=== PATIENT | female | born 1960 | race Caucasian/White ===

== ENCOUNTER 2023-06-27 08:07 | Observation (INO) ==
--- NOTE | 2023-05-03 15:50 | Anesthesiology Consultation ---
Date of Service May 03, 2023 Assessment & Plan (1) Encounter for pre-operative examination: Chart Review Chart Review: Acceptable Risk for Surgery (pending preop Covid testing results ) and Patient NOT seen in Pre Admission Testing - Awaiting preop Rake Covid test test (being done 05/04/23 or 05/05/23) - Patient is NOT an ideal OPJ candidate (currently 23 hour observation) -Infectious Disease screening: Per PAT nursing assessment on 05/03/23. Patient with congestion/runny nose x 3-4 days (symptoms resolving). No known infectious disease contacts in past 10 days. No recent travel outside the country. Due to proximity of symptoms in relation to surgery date- will need Covid test prior to surgery. Patient will get preop Covid test 05/04/23 or 05/05/23. Will await results (Patient educated symtpoms will need to be fully resolved by DOS) Left TKA 01/10/23= Done under SAB at L3-4 with two attempts History Surgery Operation Date: 05/09/23 10:55 Proposed Procedures p Right Total Knee Arthroplasty - Jackson Alejandro MD Height/Weight Height: 5 ft 4 in Weight: 122.47 kg Allergies Allergy/AdvReac Type Severity Reaction Status Date / Time No Known Allergies Allergy Verified 05/03/23 15:05 Medications Home Medications Medication Instructions Recorded Confirmed Last Taken atorvastatin 20 mg tablet (Lipitor) 20 mg PO QAM 12/19/22 05/03/23 01/10/23 05:00 fluoxetine 20 mg capsule 20 mg PO QAM 12/19/22 05/03/23 01/10/23 05:00 fluoxetine 40 mg capsule (Prozac) 40 mg PO QAM 12/19/22 05/03/23 01/10/23 05:00 lisinopril 10 mg tablet 10 mg PO QAM 12/19/22 05/03/23 01/09/23 06:30 multivitamin 1 tab PO QAM 12/19/22 05/03/23 01/09/23 06:30 torsemide 10 mg tablet 10 mg PO QAM 12/19/22 05/03/23 01/09/23 06:30 ketorolac 10 mg tablet 10 mg PO Q6 pain 5 days #20 tabs 01/08/23 05/03/23 Unknown oxycodone 5 mg tablet 5 - 10 mg (1 - 2 x 5 mg) PO Q6 PRN 01/08/23 05/03/23 Unknown pain #40 tabs amino acids 3 cap PO BID 05/03/23 05/03/23 Unknown ondansetron 4 mg disintegrating 4 mg PO Q8H PRN nausea 05/03/23 05/03/23 Unknown tablet Past Medical History Medical History Degenerative arthritis of knee, bilateral History of anxiety Hyperlipidemia Hypertension Morbid obesity Past Surgical History Surgical History History of dilatation and curettage Hx laparoscopic cholecystectomy Hx of colonoscopy Hx of tonsillectomy Hx of umbilical hernia repair Status post total left knee replacement using cement Social History Smoking Status: Never smoker Do You Dip or Chew Tobacco: No Hx Alcohol Use: No Hx Substance Use: No substance use type: does not use Lab Results Anesthesia Preop Results Results Anesthesia Widget: WBC 6.32 K/ul (4.8-10.8) 04/21/23 Hgb 12.8 g/dl (12.0-16.0) 04/21/23 Hct 40.7 % (37.0-47.0) 04/21/23 Plt 262 K/uL (130-400) 04/21/23 Na 142 mmol/L (136-145) 04/21/23 K 4.2 mmol/L (3.5-5.1) 04/21/23 Cl 105 mmol/L (98-107) 04/21/23 CO2 31 mmol/L (21-32) 04/21/23 BUN 25 mg/dl (6-23) H 04/21/23 Creat 0.84 mg/dl (0.6-1.2) 04/21/23 Glucose Level 83 mg/dl (70-99(Fasting)) 04/21/23 PT 11.0 Seconds (9.0-12.0) 04/21/23 PTT 28 Seconds (21-31) 04/21/23 INR 1.0 (0.9-1.1) 04/21/23 Blood Type O Positive 04/21/23 Antibody Screen NEGATIVE 04/21/23 Testing Electrocardiogram Date: 12/21/22 NSR at 69bpm. "Normal ECG" Chest X-Ray Date: 12/21/22 FINDINGS: The lungs are clear. Cardiac silhouette is normal in size. No pleural effusions. No pneumothorax. Prior cholecystectomy. There is a mildly tortuous thoracic aorta. Degenerative changes within the shoulders. IMPRESSION: No acute process.
--- NOTE | 2023-05-06 12:10 | History & Physical Report ---
Date of Service May 06, 2023 Assessment & Plan (1) Right knee DJD: 62-year-old female with underlying morbid obesity 3 and half months out from left knee replacement with advanced right knee tricompartment DJD. She failed conservative measures. She like to proceed with a right knee replacement. Plan: Orgran take her to the operating room and do a right knee replacement. The risks Mente this procedure were explained the patient clued but not limited to DVT PE infection neurological and vascular bleeding palm pain limb range of motion sepsis fairly with symptoms excetra. The patient understands and desires to proceed. Informed consent is obtained. Will likely use a cemented stem due to her deformity and large size. She was discharged home with and did outpatient therapy at [facility] last time and we will plan on a similar process. (2) Status post total left knee replacement using cement: History of Present Illness Chief Complaint: . Persistent right knee pain and discomfort. Primary Care Provider: Pankaj Light MD . Patient is a 62-year-old female from [facility] who is now about 3 and half months out from a left knee replacement. She is doing quite well from that side but continues to be limited by right knee pain and discomfort. She been through extensive conservative treatment in the past was become less successful over time. She directed to have her right knee fixed. She does live by herself and having difficulty managing this due to her pain and limited mobility. Allergies Allergy/AdvReac Type Severity Reaction Status Date / Time No Known Allergies Allergy Verified 05/03/23 15:05 Home Medications Medication Instructions Recorded Confirmed Type atorvastatin 20 mg tablet (Lipitor) 20 mg PO QAM 12/19/22 05/03/23 History fluoxetine 20 mg capsule 20 mg PO QAM 12/19/22 05/03/23 History fluoxetine 40 mg capsule (Prozac) 40 mg PO QAM 12/19/22 05/03/23 History lisinopril 10 mg tablet 10 mg PO QAM 12/19/22 05/03/23 History multivitamin 1 tab PO QAM 12/19/22 05/03/23 History torsemide 10 mg tablet 10 mg PO QAM 12/19/22 05/03/23 History ketorolac 10 mg tablet 10 mg PO Q6 pain 5 days #20 tabs 01/08/23 05/03/23 Rx oxycodone 5 mg tablet 5 - 10 mg (1 - 2 x 5 mg) PO Q6 PRN 01/08/23 05/03/23 Rx pain #40 tabs amino acids 3 cap PO BID 05/03/23 05/03/23 History ondansetron 4 mg disintegrating 4 mg PO Q8H PRN nausea 05/03/23 05/03/23 History tablet Past Med/Surg History Medical History (Updated 05/06/23 @ 12:08 by Jackson Alejandro MD) Right knee DJD Morbid obesity History of anxiety Hyperlipidemia Hypertension Degenerative arthritis of knee, bilateral Surgical History Status post total left knee replacement using cement History of dilatation and curettage Hx of umbilical hernia repair Hx laparoscopic cholecystectomy Hx of colonoscopy Hx of tonsillectomy Social History Smoking Status: Never smoker Second Hand Exposure: Yes (hx as child until age 10); Do You Dip or Chew Tobacco: No; Hx Alcohol Use: No Hx Substance Use: No Preferred Language: Scottish Communication Ability: Effective Electrical Prospecting Observer Required: No Beliefs That Will Affect Care: None Current Living Situation: Alone Feels Safe at Home: Yes Assistive Devices: Glasses Review of Systems All systems reviewed & are unremarkable except as noted in HPI & below. Physical Exam . Physical examination reveals a healthy a pleasant obese female. Examination of the knee reveals patient ambulates with use of a cane. Examination of the right knee reveals large soft tissue envelope. She got slight varus alignment to her knee. Tender with medial joint line. Knee is pretty stiff with range of motion about 10-1 05. No instability but examination left knee reveals well-healed incision. There is anatomic alignment to her knee. Large soft tissue envelope. Range of motion 0-1 10-1 15. No instability. Constitutional WD/WN, vitals as above Neck trachea midline, no thyromegaly Respiratory normal respiratory effort, lungs clear to auscultation Cardiovascular RRR, no murmur, no edema Gastrointestinal (Abdomen) normal bowel sounds, soft, nontender, no hepatosplenomegaly Results & Data Results & Data Laboratory Results . Diagnostic Findings . X-ray of the right knee reviewed. Shows advanced right knee tricompartment DJD. She is got complete loss of her medial joint space both medially and laterally. She is got tibiofemoral subluxation. PG Care Time/CCT Total # of Minutes Spent Total Time Spent with Patient: Total time spent is greater than 50% in coordination of care (as documented) at patient's floor/unit and/or counseling patient: Coding Level of Care Code None Diagnoses Right knee DJD M17.11 Status post total left knee replacement using cement Z96.652
--- NOTE | 2023-06-24 09:12 | History & Physical Report ---
Date of Service June 24, 2023 Assessment & Plan (1) Right knee DJD: 62-year-old female with moderate obesity and hypertension now 6 months out from a left knee replaced with advanced right knee tricompartment DJD. She is failed conservative measures. She like to have her right knee replaced. She was actually scheduled in the past but had to cancel due to some respiratory issues. This has been cleared up and would like to proceed with knee surgery. Plan: Wood to take her to the operating room and do a right knee replacement. The risks Mente this procedure explained the patient include but not limited to DVT, , infection, neurovascular injury, bleeding problems, , failure to relieve her symptoms, need for further surgery in the future. The patient understands and desires to proceed. Informed consent was obtained. She is planning on being discharged to home player. She did outpatient therapy at [facility]. She does live by herself. We use teds, SCDs, aspirin for DVT prophylaxis. Will likely put some vancomycin in the cement due to her significant BMI and increased risk of infection. (2) Status post total left knee replacement using cement: History of Present Illness Chief Complaint: . Persistent right knee pain and discomfort. Primary Care Provider: Pankaj Light MD . The patient is a 62-year-old female from [facility] who presents for surgical treatment of her right knee. She had a long history of knee pain and discomfort. She underwent a left knee replacement just about 6 months ago. She is done quite well from this. She was actually scheduled to have her right knee replaced in the past but came down with a respiratory illness. She is now recovered from this. She now like to proceed with right knee replacement. She has global pain in the knee. She is failed all conservative measures. She lives by herself and still having difficulty getting around due to this right knee. Allergies Allergy/AdvReac Type Severity Reaction Status Date / Time No Known Allergies Allergy Verified 05/03/23 15:05 Home Medications Medication Instructions Recorded Confirmed Type atorvastatin 20 mg tablet (Lipitor) 20 mg PO QAM 12/19/22 05/03/23 History fluoxetine 20 mg capsule 20 mg PO QAM 12/19/22 05/03/23 History fluoxetine 40 mg capsule (Prozac) 40 mg PO QAM 12/19/22 05/03/23 History lisinopril 10 mg tablet 10 mg PO QAM 12/19/22 05/03/23 History multivitamin 1 tab PO QAM 12/19/22 05/03/23 History torsemide 10 mg tablet 10 mg PO QAM 12/19/22 05/03/23 History ketorolac 10 mg tablet 10 mg PO Q6 pain 5 days #20 tabs 01/08/23 05/03/23 Rx oxycodone 5 mg tablet 5 - 10 mg (1 - 2 x 5 mg) PO Q6 PRN 01/08/23 05/03/23 Rx pain #40 tabs amino acids 3 cap PO BID 05/03/23 05/03/23 History ondansetron 4 mg disintegrating 4 mg PO Q8H PRN nausea 05/03/23 05/03/23 History tablet Past Med/Surg History Medical History Right knee DJD Morbid obesity History of anxiety Hyperlipidemia Hypertension Degenerative arthritis of knee, bilateral Surgical History Status post total left knee replacement using cement History of dilatation and curettage Hx of umbilical hernia repair Hx laparoscopic cholecystectomy Hx of colonoscopy Hx of tonsillectomy Social History Smoking Status: Never smoker Second Hand Exposure: Yes (hx as child until age 10); Do You Dip or Chew Tobacco: No; Hx Alcohol Use: No Hx Substance Use: No Preferred Language: Algerian Communication Ability: Effective Warp Dyeing Vat Tender Required: No Beliefs That Will Affect Care: None Current Living Situation: Alone Feels Safe at Home: Yes Assistive Devices: Glasses Review of Systems All systems reviewed & are unremarkable except as noted in HPI & below. Physical Exam . Sickle examination reveals a healthy obese middle-aged female. Examination of the right knee reveals a large soft tissue envelope. She got slight varus alignment to her knee. Her range of motion is about 10 degrees short of full extension to about 105 degrees of flexion. Fairly stiff knee. No instability. No particular pain with hip motion. Examination left knee reveals well-healed incision. Got anatomic alignment to the knee. Good straight leg raise. Range of motion 0 to about 1 10-1 15 limited by soft tissues. No instability. Constitutional WD/WN, vitals as above Neck trachea midline, no thyromegaly Respiratory normal respiratory effort, lungs clear to auscultation Cardiovascular RRR, no murmur, no edema Gastrointestinal (Abdomen) normal bowel sounds, soft, nontender, no hepatosplenomegaly Results & Data Results & Data Laboratory Results . Diagnostic Findings . X-rays of the right knee reviewed. Shows advanced right knee tricompartment DJD. She has complete loss of the joint space in all 3 areas. She got tibiofemoral subluxation. Subchondral sclerosis. The left knee replacement looks to be in good position without signs of problems. PG Care Time/CCT Total # of Minutes Spent Total Time Spent with Patient: Total time spent is greater than 50% in coordination of care (as documented) at patient's floor/unit and/or counseling patient: Coding Level of Care Code None Diagnoses Right knee DJD M17.11 Status post total left knee replacement using cement Z96.652
[~2023-06-27 08:07] MED LIST: BUPIVACAINE 0.25% PF 30 ML VIAL ONE; BUPIVACAINE 0.5 % 5 MG/1 ML PF 10ML VIAL ONE
--- NOTE | 2023-06-27 08:42 | History & Physical Bridge Note ---
Date of Service June 27, 2023 History & Physical Bridge Note I have examined the patient, reviewed the History & Physical and in the interval since the performance of the History & Physical I have noted the following changes of clinical significance: no changes noted
[2023-06-27] MEDS: LR 500ML BOLUS, THEN 15ML/HR IV SCH (08:49)
[2023-06-27] MEDS: LR 60ML/HR IV SCH (08:49)
[2023-06-27] MEDS: METOCLOPRAMIDE HCL 10 MG TABLET PO SCH (08:51)
[2023-06-27] MEDS: CeleBREX 200 MG CAP PO SCH (08:51)
[2023-06-27] MEDS: ACETAMINOPHEN 500 MG TAB PO SCH ×2 (08:51→15:05)
[2023-06-27] MEDS: dexAMETHasone**PF** 10 MG/ML VIAL IV SCH (08:51)
[2023-06-27] MEDS: Scopolamine 1 MG TDSY TD SCH (08:51)
[2023-06-27] MEDS: FAMOTIDINE 20 MG TAB PO SCH (08:51)
[2023-06-27] MEDS ORDERED: MIDAZOLAM HCL 1 MG/ML 2ML VIAL ONE (10:00)
[2023-06-27] MEDS ORDERED: fentaNYL citrate PF 100 MCG/2 ML VIAL ONE (10:00)
[2023-06-27] MEDS: ceFAZolin 3000MG 3,000 MG/72.5 ML BAG IV SCH (11:03)
[2023-06-27] MEDS ORDERED: ePHEDrine sulfate 50 MG/ML AMP IV PRN (11:16)
[2023-06-27] MEDS ORDERED: fentaNYL citrate PF 100 MCG/2 ML VIAL IV PRN (11:16)
[2023-06-27] MEDS ORDERED: ATROPINE SULFATE 0.1 MG/ML 10ML SYR IV PRN (11:16)
[2023-06-27] MEDS ORDERED: ONDANSETRON INJ 2 MG/ML 2 ML VIAL IV PRN ×2 (11:16→14:41)
[2023-06-27] MEDS ORDERED: ONDANSETRON INJ 2 MG/ML 2 ML VIAL ONE (11:32)
[2023-06-27] MEDS: TRANEXAMIC ACID 1,000 MG **IV Intra-op IV SCH (12:12)
[2023-06-27] MEDS: ORTHO JOINT ANESTHETIC ONE (12:30)
[2023-06-27] MEDS: ROPIV 0.5% 246mg, Ketorolac 30mg, EPINEPHrine 0.5mg in NSS INFIL SCH (12:30)
[2023-06-27] MEDS ORDERED: PROPOFOL IV EMULSION 10 MG/ML 100 ML VIAL IV ONE (12:42)
--- NOTE | 2023-06-27 13:05 | Operative Report ---
PG Post Operative Report Pre & Post Diagnosis Operation Date: 06/27/23 10:40 Pre-Op Diagnosis: Right Knee DJD Post-Op Diagnosis: Right Knee DJD I identified the patient and participated in the time-out.: Yes Procedure Operation Date: 06/27/23 10:40 Actual Procedures p Right Total Knee Arthroplasty(Right) - Jackson Alejandro MD Surgeon Jackson Alejandro MD Rigging Up Man Justin Henley PA-C Estimated Blood Loss 50 Findings Consistent with Post-Op Diagnosis Operative findings revealed advanced right knee tricompartment DJD. She had extensive grade 4 [id number] eburnation in all 3 compartments. She had a very stiff knee with a 10 degree flexion contracture and only bend about 100 degrees. She had osteophytes in all 3 compartments. Chronic ACL deficiency. Diffuse osteopenia. Specimens Right knee sent for pathology. Anesthesia Type Spinal MAC Complications none Disposition Accompanied Patient To Recovery: No Indications Patient is a 62-year-old female is had a long history of bilateral knee pain discomfort describes gotten worse over time. She become debilitated by her knee pain. She failed all conservative measures. X-rays revealed severe knee arthritis. She had her left knee replaced about 3 and half months ago and done well from this. She continued to be limited by right knee pain discomfort and stiffness. She elected proceed with right total knee replacement. Description of Procedure Operative implants consist of: 1 Biomet Vanguard size 67.5 right posterior stabilized femoral component. 2. Biomet size 75 tibial tray with a 12.5 mm x 8 mm cemented extension. 3. 10 mm post stabilized polyethylene insert. 4. 31 x 8 all poly patella. The patient was taken the op room, identified, placed on the operating table in the supine position but all contact areas were appropriately padded. IV antibiotics tried by anesthesia team. A spinal anesthetic and adductor canal block had provided holding area. Cook catheter was placed in sterile fashion. Right Tetrick was then placed to the right lower extremities then prepped and draped in usual sterile fashion. The right leg was elevated exsanguinated with use of an Esmarch and tourniquet placed at 300 mmHg. An anterior approach to the right knee was then performed to longitudinal incision centered over the patella. Sharp dissection was carried through subcutaneous tissue down the extensor mechanism. A medial parapatellar arthrotomy incision was made. Some subperiosteal dissection was carried out medially. The fat pad was dissected from Neath patella tendon. Lateral patellofemoral ligament was released. Patella subluxated laterally and the knee was flexed. The osteophytes taken off distal femur. The ACL was absent. The PCL was released and the tibia subluxated anteriorly. The external tibial alignment jig was then placed in the interface the tibia and adjusted 14 mm medially. Proximal tibial cut was made remove about 2 to 3 mm of bone from the medial side. The tibia sized to a size 75. Attention drawn the femur. The distal femur was then with a sharp drill. Intramedullary canal was suction. A right 5 degree valgus cutting guide was placed through the distal femoral cutting block was pinned in place. Distal femoral cut was made take an additional 3 mm of bone off distal femur. The femur was then sized to a size 67.5. The AP cutting block was pinned parallel to the epicondylar axis which was 3 degrees of external rotation. The anterior cut, anterior chamfer, posterior cut, posterior chamfer cuts were made. The box cutting guide was pl aced in just slight lateral and the box cut was made. The knee was flexed. The remnants of the medial and lateral menisci were excised. The osteophyte taken off the posterior aspect the femur. A trial femoral component was placed. The tibial tray was pinned Eliza external rotation and the drill and stem punch used to create defect in proximal tibia for the tibial tray. I then reamed by hand and power up to about a 15 in order to put a longer cemented stem and of 80 mm. Tibial tray was then assembled and placed and fit nicely nicely. The femoral trial component was placed. The knee was then trialed and the 10 mm insert fit most appropriately. Attention drawn the patella. The patella was cleaned of all soft tissue. Patella thickness measured 22 mm in thickness was cut down to 13. Was sized to a size 31 patella. The lug holes were drilled for 31 patella. Lateral osteophytes removed. Patella button was placed. Knee was taken through range of motion patella tracked nicely with no thumbs test. Attention drawn to placing permanent components. Nupathe all trial components were removed. Bone plug was placed in distal femur limit blood loss. Double batch Palacos G cement was mixed. A BiomRapidMinerguard size 67.5 right Po stabilized femoral component, size 75 tibial tray with a 80 mm x 12.5 mm cemented stem was placed followed by a 10 mm insert and a 31 x 8 all poly pa tella. The knee was brought out in full extension till cement hardened.. Once the cement hardened the final cement check was then performed. The pericapsular tissues were injected with total 100 cc of combination of a joint mix. Patient did receive 1 g tranexamic acid. The tourniquet was let down for final tourniquet time of 67 minutes. Hemostasis assured use electrocautery. Extensor mechanism closed with a combination 1 PDS suture #1 Vicryl suture in [id number] fashion. Extensor Meclomen checked found to be intact with subcutaneous tissues then closed with 2 Dexon suture in a buried interrupted fashion skin was closed skin dejan. Leg was then cleaned and dried and sterile dressed with Xeroform, 4 fours, sterile cast padding, Trevin bandage were applied. Patient then transferred to the recovery room in stable condition. Patient tolerated the procedure well and no complications. Justin Henley, my physician virtual customer assistant, was present for the entire procedure. His assistance was essential and required for appropriate patient positioning, prepping and draping, surgical exposure, performing the technical details of the operation, placement the implants, closure of the wound, and placement of the sterile bandage. I attest to the content of the Intraoperative Record and any orders documented therein. Any exceptions are noted below.
--- NOTE | 2023-06-27 13:59 | Anesthesiology Progress Note ---
Date of Service June 27, 2023 Anesthesia Post Procedure Vital Signs Vital Signs: Temp Pulse Pulse Resp BP Pulse Ox O2 Del Method 06/27/23 13:40 58 L 16 111/70 96 Nasal Cannula 06/27/23 13:30 66 15 117/69 96 Nasal Cannula 06/27/23 13:20 60 12 121/68 96 Nasal Cannula 06/27/23 13:10 65 20 124/62 96 Nasal Cannula 06/27/23 13:02 36.5 C 71 18 115/68 93 Nasal Cannula 06/27/23 08:25 Room Air 06/27/23 08:25 36.9 C 71 18 143/77 H 92 Room Air O2 Flow Rate 06/27/23 13:40 3 06/27/23 13:30 3 06/27/23 13:20 4 06/27/23 13:10 4 06/27/23 13:02 4 06/27/23 08:25 06/27/23 08:25 Pain Intensity Right Knee: Pain Intensity: 0 Transfer of Care Handoff Completed per policy Notes Mental Status: alert / awake / arousable Patient Amnestic to Procedure: Yes Nausea / Vomiting: adequately controlled Pain: adequately controlled Airway Patency, RR, SpO2: stable & adequate BP & HR: stable & adequate Hydration State: stable & adequate Neuraxial Anesthesia: was administered and sensory block is resolving Anesthetic Complications: no major complications apparent
[2023-06-27] MEDS ORDERED: ALUMINUM/MAGNESIUM SUSP 30 ML UDC PO PRN (14:41)
[2023-06-27] MEDS ORDERED: HYDROmorphone INJ 0.5 MG/0.5 ML SYR IV PRN (14:41)
[2023-06-27] MEDS ORDERED: NALOXONE HCL 0.4 MG/1 ML VIAL/CARP IV PRN (14:41)
[2023-06-27] MEDS ORDERED: oxyCODONE HCL IR 5 MG TAB (IMMEDIATE RELEASE) PO PRN ×2 (14:41)
[2023-06-27] MEDS ORDERED: MAGNESIUM HYDROXIDE SUSP 30 ML UDC PO PRN (14:41)
[2023-06-27] MEDS ORDERED: bisacodyL 10 MG SUPP PR PRN (14:41)
[2023-06-27] MEDS ORDERED: METOCLOPRAMIDE HCL INJ 5 MG/ML 2 ML VIAL IV PRN (14:41)
[2023-06-27] MEDS: KETOROLAC 30 MG/ML VIAL IV SCH (15:06)
[2023-06-27] MEDS: SODIUM CHLORIDE 0.9% 1,000 ML IV SCH (15:10)
--- NOTE | 2023-06-27 15:22 | XRay Report ---
XR knee RT 1 or 2V routine CLINICAL HISTORY: Postoperative evaluation. COMPARISON: Right knee radiographs February 26, 2023. FINDINGS: Alignment of the total right knee arthroplasty is anatomic. There is no periprosthetic fra cture or unexpected radiopaque foreign body. There are skin dejan. IMPRESSION: Expected findings following total right knee arthroplasty. ACT 112: Negative or not required by law. Electronically signed by: Chong Landa M.D. 06/27/2023 3:20 PM
[2023-06-27] MEDS: Scopolamine CHECK PATCH PLACEMENT SCH (16:14)
[2023-06-27] MEDS: ASCORBIC ACID 500 MG TAB PO SCH (18:25)
[2023-06-27] MEDS: ceFAZolin 2000MG 2,000 MG/15 ML SYR IV SCH (19:20)
[2023-06-27] MEDS: TRANEXAMIC ACID / 0.7% NACL 1,000 MG/100 ML BAG IV SCH (19:22)
[2023-06-27] MEDS ORDERED: NON-FORMULARY MEDICATION (Amino Acids Capsule) PO SCH (21:00)
[2023-06-27] MEDS: SENNA 8.6 MG TAB PO SCH ×2 (21:21→21:22)
[2023-06-27] MEDS: ASPIRIN 81 MG ECTAB PO SCH (21:22)
[2023-06-27] MEDS: DOCUSATE SODIUM 100 MG CAP PO SCH (21:22)
[2023-06-28 06:46] LABS: Hematocrit (blood only) 30.9 % (37.0-47.0); Hemoglobin 9.8 g/dl (12.0-16.0); Mean Corpuscular Hemoglobin 29.2 pg (25.0-34.0); Mean Corpuscular Hgb Conc 31.7 g/dL (32.0-36.0); Mean Platelet Volume 11.1 fL (9.4-12.4); Platelet Count 210 K/uL (130-400); RDW Coefficient of Variation 14.2 % (11.5-14.5); RDW Standard Deviation 47.7 fL (36.4-46.3); Red Blood Count 3.36 M/uL (4.20-5.40); White Blood Count 10.49 K/ul (4.8-10.8)
[2023-06-28 07:29] LABS: Calcium 8.6 mg/dl (8.6-10.3); Potassium 4.1 mmol/L (3.5-5.1)
[2023-06-28 07:35] LABS: BUN Creatinine Ratio 25.5 (10-20); Creatinine Clr Calc Pharmacy 77.2 ml/min; Est GFR (African American) 70.7 ml/min
[2023-06-28] MEDS: ATORVASTATIN 20 MG TAB PO SCH (08:05)
[2023-06-28] MEDS: MULTIVITAMIN TAB PO SCH (08:05)
[2023-06-28] MEDS: dexAMETHasone 10 MG in SYRINGE 0 ML IV SCH (08:06)
[2023-06-28] MEDS: FLUoxetine HCL 20 MG CAP PO SCH ×2 (08:07)
[2023-06-28] MEDS: lisinopril 10 MG TAB PO SCH (08:08)
[2023-06-28] MEDS: TORSEMIDE 10 MG TAB PO SCH (08:08)
[2023-06-28] MEDS ORDERED: NON-FORMULARY MEDICATION (Multivitamin Tablet) PO SCH (09:00)
--- NOTE | 2023-06-28 10:12 | Orthopedic Progress Note ---
Date of Service June 28, 2023 Assessment & Plan (1) Status post right knee replacement: Overall, she is doing quite well today with good pain control to the right knee. She will work with physical therapy later this morning to work on ambulation and range of motion exercises. She is on aspirin for DVT prophylaxis. She can be discharged home later this morning pending physical therapy evaluation. She will follow-up in [address] Alejandro for postoperative management. Subjective Annamarie Silva was seen and evaluated at bedside this morning resting comfortably in no apparent distress. She notes that her pain is well-controlled to the right knee. She has been up and out of bed with no significant issues. She has yet to work with physical therapy. She denies any other concerns today. Review of Systems All systems reviewed & are unremarkable except as noted in HPI & below. Physical Exam . On physical examination of the right knee, dressings are clean, dry, intact. Her leg is out in full extension. She has active plantarflexion dorsiflexion to the right ankle. +2 DP and PT pulses. Less than 2-second capillary refill. Normal sensation. Neurovascular intact. Results & Data Results & Data Laboratory Results . Diagnostic Findings . Postoperative x-rays of the right knee show prosthesis to be in anatomical alignment with no signs of fracture complication or loosening. PG Care Time/CCT Total # of Minutes Spent Total Time Spent with Patient: Total time spent is greater than 50% in coordination of care (as documented) at patient's floor/unit and/or counseling patient: Coding Level of Care Code 56563 Post Operative Follow-Up Diagnoses Status post right knee replacement Z96.651
--- NOTE | 2023-06-28 10:13 | Discharge Summary ---
Date of Service June 28, 2023 Admission HPI (Per Admitting) . The patient is a 62-year-old female from [facility] who presents for surgical treatment of her right knee. She had a long history of knee pain and discomfort. She underwent a left knee replacement just about 6 months ago. She is done quite well from this. She was actually scheduled to have her right knee replaced in the past but came down with a respiratory illness. She is now recovered from this. She now like to proceed with right knee replacement. She has global pain in the knee. She is failed all conservative measures. She lives by herself and still having difficulty getting around due to this right knee. Admission Exam (Per Admitting) . Sickle examination reveals a healthy obese middle-aged female. Examination of the right knee reveals a large soft tissue envelope. She got slight varus alignment to her knee. Her range of motion is about 10 degrees short of full extension to about 105 degrees of flexion. Fairly stiff knee. No instability. No particular pain with hip motion. Examination left knee reveals well-healed incision. Got anatomic alignment to the knee. Good straight leg raise. Range of motion 0 to about 1 10-1 15 limited by soft tissues. No instability. Principal Diagnosis Same as "Discharge Diagnosis" noted below under Discharge Instructions. Discharge Exam . On physical examination of the right knee, dressings are clean, dry, intact. Her leg is out in full extension. She has active plantarflexion dorsiflexion to the right ankle. +2 DP and PT pulses. Less than 2-second capillary refill. Normal sensation. Neurovascular intact. Discharge Data Procedures Performed Operation Date: 06/27/23 10:40 Actual Procedures p Right Total Knee Arthroplasty(Right) - Jackson Alejandro MD Ordered Studies 06/27/23 05:00 US - OR guided needle placemen Routine Hospital Course (1) Status post right knee replacement: On June 27, 2023 Shira arrived at [facility] and underwent a right total knee arthroplasty performed by Dr. Alejandro with no complications. Postoperatively, she was started on aspirin for DVT prophylaxis and transferred to the general orthopedic floor in stable condition. Her hospital course was uneventful. On postoperative day #1, her vital signs were stable and her pain was well-controlled. She participated well with physical therapy working on ambulation and range of motion exercises. She was then discharged home in stable condition. She will follow-up with Dr. Alejandro in 2 weeks for postoperative management. PG Care Time/CCT Total # of Minutes Spent Total Time Spent with Patient: Total time spent is greater than 50% in coordination of care (as documented) at patient's floor/unit and/or counseling patient: Discharge Plan Discharge Items Patient Disposition: Home - Self-Care Reason For Visit: Right Knee DJD Discharge Diagnosis: Right Knee Replacement Activity: Per Instructions section Weightbearing: Full weightbearing Non-emergency contact: Surgeon Call non-emergency contact if: you have any medication questions Follow-up/Referrals: Pankaj Light MD [Primary Care Provider] - Diet: Regular Ambulatory Orders: SARS CoV2 RNA(COVID-19)[place] (Routine) Timeframe: 1 Week Location: Determined by Patient Ordered By: Vilma Lundy Attending Provider Instructions: ACTIVITY RECOMMENDATIONS: Physical Therapy: * You will go to physical therapy three times each week for four to six weeks after your surgery in order to regain your knee range of motion and to retrain your knee to work properly. * It is just as important to make sure you are getting your knee perfectly straight as it is to regain your knee bend. * Taking a pain pill an hour before therapy can help you have a more productive and comfortable therapy session. Home Exercise: * You were shown a series of exercises (heel props, heel slides, etc.) in the hospital. Do these exercises three to four times each day including the exercises you were shown in physical therapy. Walking: * Get up and walk several times each day. For the first four weeks, try not to stand or walk for more than one hour at a time. If you do stand or walk for more than one hour, you will not hurt anything, but your knee and leg will likely swell. * As you feel comfortable, you may change from the walker or crutches to a cane and then to independent walking. MEDICATIONS: New Medicine: * You will likely be taking one or more of these medications: 1. Oxycodone - A quick and shorter-acting pain medication. Take one to two tablets every six hours to lessen your pain. 2. Aspirin - Thins your blood to lessen the chance of forming a blood clot. * The most common side effects of pain medicine and iron are nausea and constipation. If nausea or constipation is too much of a problem or if you have any questions about your new medicines or doses, call [facility] at . We will try to help you manage these issues. "VERY IMPORTANT TO READ AND REVIEW" Pain: * The immediate post-operative period after knee replacement surgery is often quite painful. * You are given a prescription for pain medicine. You should take it, as directed, when you need it, especially before physical therapy and before going to bed. Pain that interferes with sleep is very common and can last several months. * You will likely need pain medicine for the first four to six weeks. It will not stop all of the pain. The pain will lessen and as you feel better, you may change to milder pain medicine such as Tylenol. * The most common side effects of pain medicine are nausea and constipation, so don't take more than you need. SPECIAL CARE INSTRUCTIONS: TEDs/Elastic Stockings: * The white elastic stockings help limit swelling and prevent blood clots from forming in your legs. The more you wear them, the more they work. * Wear them for six weeks after knee replacement surgery and four weeks after partial knee replacement. Incision Site Care: * Remove dressing postoperative day 2 and then shower. Keep direct shower pressure off the incision site. * After showering, cover dejan with dry gauze and change daily or more frequently if the dressing is getting saturated with drainage. * Use the UNIQUE stockings to hold dressing in place. DO NOT apply tape on the skin. * May completely stop using bandage if wound is dry and no drainage * [place] are removed between 2 and 3 weeks post-op. If your follow-up appointment is made before 2 weeks, please have your appointment re- scheduled. It is too early to remove the dejan. Prevention of Infection: * Take antibiotics one hour before any dental cleaning, dental work, urological procedure, gastrointestinal procedure or any invasive surgery in order to prevent your new joint from getting infected. * You may get the antibiotics from the doctor performing the procedure or you may call our office at [phone] before and we will call in a prescription to the pharmacy of your choice. Things to Watch For: * Drainage from the incision site that occurs more than one week after your surgery. * Severely increased knee/leg pain or swelling. * Increased redness at the incision site. * Fever above 102 degrees Fahrenheit. * Unusual chest pain or shortness of breath. * Unusual pain or burning with urination. Call [facility] at [phone] with any of the above problems or if you have any questions about your medicines or recovery. FOLLOW UP VISIT: Make an appointment to see your doctor for approximately two weeks after surgery for a progress check and staple removal by calling the office at [phone]. Pending Studies at Discharge: No Stand-Alone Forms: My [facility], Smoking Cessation Medications and DC Order Prescriptions: Continued oxycodone 5 mg tablet 5 - 10 mg PO Q6 PRN (Reason: pain) Qty: 40 0RF Patient Comments: 05/03/23-"still has a lot left from last surgery 12/2022" Rx Instructions: Take as needed for pain ketorolac 10 mg tablet 10 mg PO Q6 5 Days Qty: 20 0RF Patient Comments: no longer taking Rx Instructions: Take 4 times per day with food for 5 days to lessen pain and swelling. oxycodone 5 mg tablet 5 - 10 mg PO Q6 PRN (Reason: pain) Qty: 40 0RF Rx Instructions: Take as needed for pain ondansetron 4 mg tablet,disintegrating 4 mg PO Q8 PRN (Reason: nausea) Qty: 20 1RF Rx Instructions: Take as needed for nausea ketorolac 10 mg tablet 10 mg PO Q6 5 Days Qty: 20 0RF Rx Instructions: Take 4 times per day with food for 5 days to lessen pain and swelling. sennosides [Senokot] 8.6 mg tablet 8.6 mg PO BID 14 Days Qty: 28 0RF Rx Instructions: Take two times a day to prevent/treat constipation acetaminophen [Tylenol Extra Strength] 500 mg tablet 1,000 mg PO TID 30 Days Qty: 180 0RF Rx Instructions: Take 3 times per day to lessen pain. aspirin [Tom Low Dose Aspirin] 81 mg tablet,delayed release (DR/EC) 81 mg PO BID 45 Days Qty: 90 0RF Rx Instructions: Take to prevent blood clots. cefadroxil 500 mg capsule 500 mg PO BID 7 Days Qty: 14 0RF Rx Instructions: Take 1 cap twice a day to prevent infection multivitamin Tablet 1 tab PO QAM fluoxetine [Prozac] 40 mg capsule 40 mg PO QAM atorvastatin [Lipitor] 20 mg tablet 20 mg PO QAM torsemide 10 mg tablet 10 mg PO QAM lisinopril 10 mg tablet 10 mg PO QAM fluoxetine 20 mg capsule 20 mg PO QAM ondansetron 4 mg tablet,disintegrating 4 mg PO Q8H PRN (Reason: nausea) Rx Instructions: Take as needed for nausea amino acids Capsule 3 cap PO BID Discharge Orders: Discharge Order (Routine); Ordered 06/28/23 Ordered By: Jackson Alejandro Admission Data Admit Date/Time: 06/27/23 12:57 Attending Provider: Jackson Alejandro Admit Provider: Jackson Alejandro Primary Care Provider: Pankaj Light
== END 2023-06-28 11:01 | disposition home or self-care (01) ==
LOC: ASU 08:07 → 3N 08:07